=== PATIENT | female | born 1990 | race Caucasian/White ===

== ENCOUNTER 2020-07-28 09:54 | Emergency (ER) | payer MEDICAID, OTHER ==
[~2020-07-28] VITALS: Ht 154.9 cm; Wt 63.5 kg
[~2020-07-28 09:54] MED LIST: DOCU-131 PO; IBUP100O24 PO
[2020-07-28 10:13] VITALS: BP 126/66
--- NOTE | 2020-07-28 10:26 | NUR ---
THIS IS A 30 YO F W/ C/O SPIDER BITE ON RT UPPR THIGH, STARTING WEDNESDAY. PT REPORTS REDNESS, SWELLING AND PAIN WORSENING. PT RESTING ON GURNEY W/ CALL LIGHT IN REACH, RESP EVEN AND UNLABORED, NADN.
== END 2020-07-28 10:53 | disposition home or self-care (01) ==
LOC: ED 10:30
DX: L03.116 Cellulitis of left lower limb (principal)
CPT/HCPCS: 99283